=== PATIENT | female | born 1985 | race African-American/Black ===

== ENCOUNTER 2021-08-23 07:30 | Emergency (ER) | payer BC, SELFPAY ==
[2021-08-23] MEDS ORDERED: Fentanyl 100 MCG/2 ML VIAL ONE ×2 (07:48→08:33)
[2021-08-23] MEDS ORDERED: Ondansetron PF 4 MG/2 ML Vial ONE (07:48)
[2021-08-23 07:58] LABS: #Eosinphils 0.1 10x3/uL (0.0-0.5); #Monocytes 0.8 10x3/uL (0.0-1.1); #Neutrophils 3.9 10x3/uL (1.5-8.4); %Basophils 0.2 % (0.0-2.0); %Eosinophils 0.9 % (0.0-6.0); %Lymphocytes 13.5 % (18.0-47.0); %Monocytes 13.6 % (0.0-10.0); %Neutrophils 71.4 % (40.0-75.0); Hemoglobin 8.7 g/dL (12.0-15.5); Mean Corpuscular Hemoglobin 26.1 pg (27.0-33.0); Mean Corpuscular Volume 79.3 fl (81.6-98.3); Platelet Count 285 10x3/uL (150-450); RBC Distribution Width 15.4 % (11.5-14.5); Red Blood Cell (RBC) Count 3.33 10x6/uL (3.90-5.03); White Blood Cell (WBC) Count 5.5 10x3/uL (3.5-10.5)
[2021-08-23 08:08] LABS: BHCG - Serum POSITIVE (NEGATIVE); Pregs Control Background? CLEAR/WHITE (CLR/WHITE); Pregs Control Bar Appear? YES (CONTROL BAR)
[2021-08-23 08:15] LABS: PTT 29.2 sec (22.0-33.0); Prothrombin Time 10.9 sec (9.5-12.1)
[2021-08-23 08:16] LABS: ALT (SGPT) 8 U/L (8-55); AST (SGOT) 12 U/L (5-34); Albumin 3.4 g/dL (3.5-5.0); Alkaline Phosphatase 65 U/L (40-110); Anion Gap 13 mmol/L (10-20); BUN (Urea Nitrogen) 7 mg/dL (7.0-18.7); Bilirubin, Total 0.2 mg/dL (0.2-1.2); CK (CPK) 74 U/L (29-168); Calc. Creatinine Clearance 0 mL/min (70-130); Calcium 8.4 mg/dL (7.8-10.44); Carbon Dioxide 17 mmol/L (22-29); Chloride 106 mmol/L (98-107); Globulin 3.2 g/dL (2.4-3.5); Glucose 95 mg/dL (70-105); Lipase 23 U/L (8-78); Potassium 3.8 mmol/L (3.5-5.1); Protein, Total 6.6 g/dL (6.0-8.3); Sodium 132 mmol/L (136-145)
[2021-08-23 08:41] LABS: Bilirubin Neg (Negative); Blood, Urine Negative (Negative); Clarity Clear (Clear); Glucose, Urine (Dipstick) Normal (Negative); Ketone, Urine Negative (Negative); Leukocyte Negative (Negative); Nitrite Negative (Negative); Protein, Urine (Dipstick) Negative (Neg-Trace); Specific Gravity, Urine 1.005 (1.002-1.036); Urobilinogen Normal mg/dL (Less than 2)
[2021-08-27 21:07] LABS: Chlamydia by PCR Not Detected (NotDetected); GC by PCR Not Detected (NotDetected)
== END 2021-08-23 10:34 | disposition home or self-care (01) ==
LOC: CSHERS 07:30
DX: O99.891 Other specified diseases and conditions complicating pregnancy (principal); M54.50 Low back pain, unspecified; O34.81 Maternal care for other abnormalities of pelvic organs, first trimester; N83.201 Unspecified ovarian cyst, right side; O23.591 Infection of other part of genital tract in pregnancy, first trimester; Z3A.01 Less than 8 weeks gestation of pregnancy
CPT/HCPCS: 76856; 80053; 81003; 82550; 83690; 84702; 84703; 85025; 85610; 85730; 86850; 86900; 86901; 87480; 87491; 87510; 87591; 87660; 96374; 96375; 96376; J2405; J3010

== ENCOUNTER 2021-09-01 22:09 | Emergency (ER) | payer SELFPAY ==
[2021-09-01 23:07] LABS: #Eosinphils 0.2 10x3/uL (0.0-0.5); #Monocytes 0.3 10x3/uL (0.0-1.1); %Basophils 0.1 % (0.0-2.0); %Eosinophils 1.9 % (0.0-6.0); %Lymphocytes 42.8 % (18.0-47.0); %Monocytes 3.7 % (0.0-10.0); %Neutrophils 51.2 % (40.0-75.0); Hemoglobin 10.1 g/dL (12.0-15.5); Mean Corpuscular HGB CONC 33.2 g/dL (32.0-36.0); Mean Corpuscular Hemoglobin 25.6 pg (27.0-33.0); Mean Corpuscular Volume 77.2 fl (81.6-98.3); Mean Platelet Volume 9.5 fl (7.4-10.4); Platelet Count 303 10x3/uL (150-450); RBC Distribution Width 14.8 % (11.5-14.5); Red Blood Cell (RBC) Count 3.94 10x6/uL (3.90-5.03); White Blood Cell (WBC) Count 7.8 10x3/uL (3.5-10.5)
[2021-09-03 20:57] LABS: Chlamydia by PCR Not Detected (NotDetected); GC by PCR Not Detected (NotDetected)
== END 2021-09-02 02:52 | disposition home or self-care (01) ==
LOC: CSHERS 22:09
DX: O20.0 Threatened abortion (principal); Z3A.08 8 weeks gestation of pregnancy
CPT/HCPCS: 76856; 84702; 85025; 86850; 86900; 86901; 87480; 87491; 87510; 87591; 87660

== ENCOUNTER 2021-10-29 16:49 | Emergency (ER) | payer BC ==
[2021-10-29] MEDS ORDERED: Bupivacaine 0.25% HCL 30 ML VIAL ONE (17:47)
[2021-10-29] MEDS ORDERED: Acetaminophen 500 MG TAB ONE (17:47)
[2021-10-29] MEDS ORDERED: Lidocaine 1% (PF) 30 ML VIAL ONE (17:47)
== END 2021-10-29 18:48 | disposition home or self-care (01) ==
LOC: CSHERS 16:49
DX: O9A.212 Injury, poisoning and certain other consequences of external causes complicating pregnancy, second trimester (principal); S61.211A Laceration without foreign body of left index finger without damage to nail, initial encounter; W26.0XXA Contact with knife, initial encounter; Z3A.00 Weeks of gestation of pregnancy not specified
CPT/HCPCS: 12001; 90471; J2001; S0020

== ENCOUNTER 2022-01-12 10:38 | Day surgery (SDC) | payer BC ==
[2022-01-12 10:44] VITALS: BMI 38.1
[2022-01-12] MEDS ORDERED: hydrALAZINE 20 MG/ML VIAL SLOW IVP PRN (11:35)
[2022-01-12] MEDS ORDERED: Lactated Ringer's 1,000 ML IV SCH (11:45)
[2022-01-12] MEDS ORDERED: Fioricet 325/50/40 mg Tablet PO PRN (11:46)
[2022-01-12] MEDS ORDERED: Ondansetron PF 4 MG/2 ML Vial IVP PRN (11:50)
[2022-01-12 12:01] LABS: Bilirubin Neg (Negative); Blood, Urine 50 (Negative); Clarity Clear (Clear); Glucose, Urine (Dipstick) Normal (Negative); Ketone, Urine 150 mg/dL (Negative); Leukocyte Negative (Negative); Nitrite Negative (Negative); Protein, Urine (Dipstick) 15 mg/dl (Neg-Trace); Specific Gravity, Urine 1.015 (1.002-1.036)
[2022-01-12 12:33] LABS: Bacteria/HPF Rare-Few HPF (None Seen); Squamous Epithelial 0-3 HPF (0-3); WBC/HPF 0-3 HPF (0-3)
[2022-01-12 12:33] LABS: #Monocytes 0.7 10x3/uL (0.0-1.1); #Neutrophils 8.2 10x3/uL (1.5-8.4); %Basophils 0.2 % (0.0-2.0); %Eosinophils 0.4 % (0.0-6.0); %Lymphocytes 13.5 % (18.0-47.0); %Monocytes 6.9 % (0.0-10.0); %Neutrophils 78.5 % (40.0-75.0); Hemoglobin 8.4 g/dL (12.0-15.5); Mean Corpuscular HGB CONC 34.1 g/dL (32.0-36.0); Mean Corpuscular Hemoglobin 26.9 pg (27.0-33.0); Mean Corpuscular Volume 78.8 fl (81.6-98.3); Mean Platelet Volume 9.6 fl (7.4-10.4); Platelet Count 234 10x3/uL (150-450); RBC Distribution Width 15.6 % (11.5-14.5); Red Blood Cell (RBC) Count 3.12 10x6/uL (3.90-5.03); White Blood Cell (WBC) Count 10.5 10x3/uL (3.5-10.5)
[2022-01-12 13:17] LABS: SARS-CoV-2 NAA Rapid Test Not Detected (NotDetected)
== END 2022-01-12 18:50 | disposition home health service (06) ==
LOC: CSHLD/OP 10:38
PROVIDERS: ATTEND Obstetrics & Gynecology
DX: O99.891 Other specified diseases and conditions complicating pregnancy (principal); M79.10 Myalgia, unspecified site; O99.282 Endocrine, nutritional and metabolic diseases complicating pregnancy, second trimester; E86.0 Dehydration; O34.219 Maternal care for unspecified type scar from previous cesarean delivery; O32.1XX0 Maternal care for breech presentation, not applicable or unspecified; Z3A.26 26 weeks gestation of pregnancy; Z20.822 Contact with and (suspected) exposure to COVID-19
CPT/HCPCS: 36415; 51701; 76815; 81001; 82550; 83874; 84145; 85025; 86140; 96360; 96361; 96375; 99285

== ENCOUNTER 2022-04-10 02:44 | Inpatient (IN) | payer BC, OTHER ==
[2022-04-10 03:12] VITALS: BMI 37.3
[2022-04-10] MEDS ORDERED: Lidocaine 1% (PF) 30 ML VIAL SC PRN (04:23)
[2022-04-10] MEDS ORDERED: Promethazine HCl 25 MG/ML VIAL IM PRN ×2 (04:23→10:20)
[2022-04-10] MEDS ORDERED: Ondansetron PF 4 MG/2 ML Vial IVP PRN ×2 (04:23→10:20)
[2022-04-10] MEDS ORDERED: hydrALAZINE 20 MG/ML VIAL SLOW IVP PRN ×2 (04:23→17:43)
[2022-04-10] MEDS ORDERED: Ibuprofen 800 MG TAB PO PRN (04:24)
[2022-04-10] MEDS ORDERED: NS w/ Oxytocin 30 units 500 ML IV SCH ×2 (04:30→09:45)
[2022-04-10 04:59] LABS: Hemoglobin 9.5 g/dL (12.0-15.5); Mean Corpuscular HGB CONC 33.8 g/dL (32.0-36.0); Mean Corpuscular Hemoglobin 26.8 pg (27.0-33.0); Mean Corpuscular Volume 79.4 fl (81.6-98.3); Mean Platelet Volume 9.4 fl (7.4-10.4); Platelet Count 282 10x3/uL (150-450); RBC Distribution Width 15.6 % (11.5-14.5); Red Blood Cell (RBC) Count 3.54 10x6/uL (3.90-5.03); White Blood Cell (WBC) Count 7.3 10x3/uL (3.5-10.5)
[2022-04-10 05:29] LABS: HBSAg Index 0.21 S/CO (0-0.99); Hep B Surf Ag Non-Reactive S/CO (NonReactive); Syphilis Antibody Nonreactive (Nonreactive); Syphilis Antibody Index 0.03 S/CO (<1.00 Non-Reactive)
[2022-04-10] MEDS ORDERED: Fentanyl 2 mcg/Bup 0.1% Cadd 100 ML ONE (05:41)
[2022-04-10] MEDS ORDERED: Bupivacaine 0.25% HCL 30 ML VIAL ONE (08:00)
[2022-04-10] MEDS ORDERED: ePHEDrine Sulfate 50 MG/10 ML VIAL ONE (08:00)
[2022-04-10 08:36] LABS: SARS-CoV-2 NAA Rapid Test Not Detected (NotDetected)
[2022-04-10] MEDS ORDERED: Carboprost 250 MCG/ML AMP IM PRN (09:48)
[2022-04-10] MEDS ORDERED: Misoprostol 200 MCG TAB PR PRN (09:48)
[2022-04-10] MEDS ORDERED: Methylergonovine 0.2 MG/ML VIAL IM PRN (09:48)
[2022-04-10] MEDS ORDERED: ePHEDrine Sulfate 50 MG/10 ML VIAL SLOW IVP PRN (10:20)
[2022-04-10] MEDS ORDERED: Moisturizing Cream (Eucerin) 113 GM JAR TOP PRN (10:20)
[2022-04-10] MEDS ORDERED: Lactated Ringer's 500 ML IV PRN (10:20)
[2022-04-10] MEDS ORDERED: Naloxone HCl 0.4 mg/ml Vial IVP PRN ×2 (10:20)
[2022-04-10] MEDS ORDERED: Acetaminophen 325 MG TAB PO PRN (10:20)
[2022-04-10] MEDS ORDERED: Communication Order-Pharmacy FS SCH (10:30)
[2022-04-10] MEDS ORDERED: Fentanyl 2 mcg/Bupivacaine 0.1% Cassette 100 ML EPIDURAL SCH (10:30)
[2022-04-10] MEDS: Lactated Ringer's 1,000 ML IV SCH (10:46)
[2022-04-10] MEDS ORDERED: CEFAZOLIN 2 GM VIAL ONE (13:46)
[2022-04-10] MEDS ORDERED: Azithromycin 500 MG VIAL ONE (13:46)
[2022-04-10] MEDS ORDERED: Azithromycin 500 MG in Sodium Chloride 0.9% 250 ML 250 ML IVPB SCH (14:00)
[2022-04-10] MEDS ORDERED: CEFAZOLIN 2 GM in Sodium Chloride 0.9% 100 ML IVPB SCH (14:00)
[2022-04-10] MEDS ORDERED: Morphine PF 10 MG/10 ML VIAL ONE (14:19)
[2022-04-10] MEDS ORDERED: Fentanyl 100 MCG/2 ML VIAL ONE (14:19)
[2022-04-10] MEDS ORDERED: Sodium Chloride 0.9% 10 ML ONE (14:22)
[2022-04-10] MEDS ORDERED: Tranexamic Acid 1,000 MG/10 ML VIAL ONE (14:31)
[2022-04-10] MEDS ORDERED: Dexamethasone 4 mg/ml Vial ONE (15:10)
[2022-04-10] MEDS ORDERED: Oxytocin 10 UNITS/ML VIAL ONE (15:12)
[2022-04-10] MEDS ORDERED: Ketorolac Tromethamine 30 MG/ML VIAL ONE (15:19)
[2022-04-10] MEDS ORDERED: Boostrix 0.5 ML (Tdap) VIAL IM ONE (17:43)
[2022-04-10] MEDS ORDERED: Bisacodyl 10 MG SUPP PR PRN (17:43)
[2022-04-10] MEDS ORDERED: Lanolin Ointment 7 GM TUBE TOP PRN (17:43)
[2022-04-10] MEDS: diphenhydrAMINE 50 MG/ML VIAL IVP PRN (20:09)
[2022-04-10] MEDS: Simethicone Chewable 80 MG TAB PO PRN (20:10)
[2022-04-10] MEDS: Docusate 100 MG CAP PO SCH (20:10)
[2022-04-10] MEDS ORDERED: Ketorolac Tromethamine 30 MG/ML VIAL IVP SCH (20:45)
[2022-04-10] MEDS: Ferrous Sulfate 325 MG TAB PO SCH (21:00)
[2022-04-10] MEDS ORDERED: Ibuprofen 800 MG TAB PO SCH (22:00)
[2022-04-11] MEDS: diphenhydrAMINE 50 MG/ML VIAL IVP PRN (03:28)
[2022-04-11 04:30] LABS: Hemoglobin 8.4 g/dL (12.0-15.5); Mean Corpuscular HGB CONC 33.3 g/dL (32.0-36.0); Mean Corpuscular Hemoglobin 26.4 pg (27.0-33.0); Mean Corpuscular Volume 79.2 fl (81.6-98.3); Mean Platelet Volume 9.9 fl (7.4-10.4); Platelet Count 266 10x3/uL (150-450); RBC Distribution Width 15.7 % (11.5-14.5); Red Blood Cell (RBC) Count 3.18 10x6/uL (3.90-5.03); White Blood Cell (WBC) Count 11.5 10x3/uL (3.5-10.5)
[2022-04-11] MEDS: Ibuprofen 800 MG TAB PO SCH ×3 (06:22→22:01)
[2022-04-11] MEDS: Prenatal Vitamin 1 TAB PO SCH (08:48)
[2022-04-11] MEDS: Docusate 100 MG CAP PO SCH ×2 (08:48→22:01)
[2022-04-11] MEDS: Ferrous Sulfate 325 MG TAB PO SCH ×2 (08:48→22:00)
[2022-04-11] MEDS: Simethicone Chewable 80 MG TAB PO PRN ×3 (08:51→22:01)
[2022-04-11] MEDS: Lactated Ringer's 1,000 ML IV SCH (09:19)
[2022-04-11] MEDS: HYDROcodone/Acetaminophen 5/325 mg Tablet PO PRN ×3 (12:17→22:02)
[2022-04-12] MEDS: Ibuprofen 800 MG TAB PO SCH ×3 (05:35→21:08)
[2022-04-12] MEDS: Simethicone Chewable 80 MG TAB PO PRN ×3 (05:38→21:08)
[2022-04-12] MEDS: Prenatal Vitamin 1 TAB PO SCH (09:05)
[2022-04-12] MEDS: HYDROcodone/Acetaminophen 5/325 mg Tablet PO PRN ×3 (09:05→22:08)
[2022-04-12] MEDS: Docusate 100 MG CAP PO SCH ×2 (09:06→21:08)
[2022-04-12] MEDS: Ferrous Sulfate 325 MG TAB PO SCH ×2 (09:06→21:08)
[2022-04-13] MEDS: Ibuprofen 800 MG TAB PO SCH ×2 (05:16→14:10)
[2022-04-13] MEDS: Ferrous Sulfate 325 MG TAB PO SCH (07:57)
[2022-04-13] MEDS: Docusate 100 MG CAP PO SCH (07:57)
[2022-04-13] MEDS: Prenatal Vitamin 1 TAB PO SCH (07:57)
[2022-04-13] MEDS: Simethicone Chewable 80 MG TAB PO PRN (08:00)
[2022-04-13 11:36] VITALS: BP 128/73; TEMP 98.7
[2022-04-13] MEDS: HYDROcodone/Acetaminophen 5/325 mg Tablet PO PRN (11:50)
== END 2022-04-13 16:16 | disposition home or self-care (01) | DRG 788 ==
LOC: CSHLD/OP 02:44 → CSHLD 04:09 → CSHPP 17:54
PROVIDERS: ADMIT Obstetrics & Gynecology; ATTEND Obstetrics & Gynecology
PROC: 10D00Z1 Extraction of Products of Conception, Low, Open Approach (ICD-10-PCS; principal; 2022-04-10)
PROC: 10H07YZ Insertion of Other Device into Products of Conception, Via Natural or Artificial Opening (ICD-10-PCS; 2022-04-10)
DX: O42.02 Full-term premature rupture of membranes, onset of labor within 24 hours of rupture (principal); Z3A.39 39 weeks gestation of pregnancy; Z37.0 Single live birth; O34.211 Maternal care for low transverse scar from previous cesarean delivery; O69.89X0 Labor and delivery complicated by other cord complications, not applicable or unspecified; O69.81X0 Labor and delivery complicated by cord around neck, without compression, not applicable or unspecified; Z79.899 Other long term (current) drug therapy; O99.02 Anemia complicating childbirth; O76 Abnormality in fetal heart rate and rhythm complicating labor and delivery; O32.8XX0 Maternal care for other malpresentation of fetus, not applicable or unspecified; L91.0 Hypertrophic scar; O99.72 Diseases of the skin and subcutaneous tissue complicating childbirth; O99.62 Diseases of the digestive system complicating childbirth; K66.0 Peritoneal adhesions (postprocedural) (postinfection); D50.9 Iron deficiency anemia, unspecified; Z20.822 Contact with and (suspected) exposure to COVID-19
CPT/HCPCS: 36415; 51702; 85027; 86780; 86850; 86900; 86901; 87340; 99285; J1100; J1200; J1885; J2274; J2590; J3010; J7120; S0020; U0002

== ENCOUNTER 2022-10-29 09:06 | Outpatient (CLI) | payer BC, OTHER | END 2022-10-29 09:07 | disposition home or self-care (01) | LOC: CSHCT 09:06 | PROVIDERS: ATTEND Internal Medicine Gastroenterology | DX: K92.1 Melena (principal); R10.31 Right lower quadrant pain; K64.8 Other hemorrhoids; I88.0 Nonspecific mesenteric lymphadenitis; N83.9 Noninflammatory disorder of ovary, fallopian tube and broad ligament, unspecified | CPT/HCPCS: 74177 ==

== ENCOUNTER 2022-12-19 08:57 | Emergency (ER) | payer BC, OTHER ==
[~2022-12-19 08:57] MED LIST: Iopamidol 300 61% 100 ML VIAL FS ONE
[2022-12-19] MEDS ORDERED: Ibuprofen 200 MG TAB ONE (09:20)
[2022-12-19 10:16] LABS: Bilirubin Neg (Negative); Blood, Urine 150 (Negative); Clarity Slightly Cloudy (Clear); Glucose, Urine (Dipstick) Normal (Negative); Ketone, Urine Negative (Negative); Leukocyte 500 (Negative); Nitrite Positive (Negative); Protein, Urine (Dipstick) 30 mg/dl (Neg-Trace)
[2022-12-19 10:17] LABS: SARS-CoV-2 NAA Rapid Test Not Detected (NotDetected)
[2022-12-19 10:21] LABS: BHCG - Serum Negative (NEGATIVE); Pregs Control Background? CLEAR/WHITE (CLR/WHITE); Pregs Control Bar Appear? YES (CONTROL BAR)
[2022-12-19 10:23] LABS: Bacteria/HPF 4+ HPF (None Seen); Squamous Epithelial 0-3 HPF (0-3)
[2022-12-19 10:24] LABS: Mucous/LPF 1+ LPF (<2+); Sperm/HPF Rare HPF (None Seen)
[2022-12-19 10:28] LABS: #Monocytes 0.8 10x3/uL (0.0-1.1); #Neutrophils 14.3 10x3/uL (1.5-8.4); %Basophils 0.2 % (0.0-2.0); %Eosinophils 0.1 % (0.0-6.0); %Lymphocytes 8.3 % (18.0-47.0); %Monocytes 4.6 % (0.0-10.0); Hemoglobin 9.9 g/dL (12.0-15.5); Mean Corpuscular HGB CONC 32.7 g/dL (32.0-36.0); Mean Corpuscular Hemoglobin 24.8 pg (27.0-33.0); Mean Corpuscular Volume 75.8 fl (81.6-98.3); Mean Platelet Volume 9.6 fl (7.4-10.4); Platelet Count 356 10x3/uL (150-450); RBC Distribution Width 15.4 % (11.5-14.5); White Blood Cell (WBC) Count 16.6 10x3/uL (3.5-10.5)
[2022-12-19 10:33] LABS: ALT (SGPT) 11 U/L (8-55); AST (SGOT) 11 U/L (5-34); Albumin 3.5 g/dL (3.5-5.0); Alkaline Phosphatase 72 U/L (40-110); Anion Gap 15 mmol/L (10-20); BUN (Urea Nitrogen) 9 mg/dL (7.0-18.7); Bilirubin, Total 0.5 mg/dL (0.2-1.2); Calc. Creatinine Clearance 0 mL/min (70-130); Calcium 8.5 mg/dL (7.8-10.44); Carbon Dioxide 19 mmol/L (22-29); Chloride 104 mmol/L (98-107); Estimated GFR 93; Globulin 3.7 g/dL (2.4-3.5); Glucose 173 mg/dL (70-105); Magnesium 1.8 mg/dL (1.6-2.6); Potassium 3.3 mmol/L (3.5-5.1); Protein, Total 7.2 g/dL (6.0-8.3); Sodium 135 mmol/L (136-145)
[2022-12-19] MEDS ORDERED: cefTRIAXone (ROCEPHIN) 1 GM VIAL ONE (11:12)
== END 2022-12-19 12:21 | disposition home or self-care (01) ==
LOC: CSHERS 08:57
DX: J02.0 Streptococcal pharyngitis (principal); N39.0 Urinary tract infection, site not specified; Z20.822 Contact with and (suspected) exposure to COVID-19
CPT/HCPCS: 36415; 70491; 80053; 81003; 81015; 83605; 83735; 84703; 85025; 87040; 87077; 87086; 87186; 87430; 96365; 96366; J0696; Q9967